=== PATIENT | male | born 1985 | race Caucasian/White ===

== ENCOUNTER 2019-07-18 10:06 | Emergency (ER) | payer BC ==
[~2019-07-18] VITALS: Ht 195.6 cm; Wt 124.7 kg
--- NOTE | 2019-07-18 10:15 | NUR ---
L THUMB LACERATION VS BROKEN VASE. PATIENT A/OX4, KEPT COMFORTABLE. NEEDS ATTENDED.
[2019-07-18] MEDS ORDERED: GELATIN SPONGE,ABSORBABLE 1 SPONGE SPONGE TP ONE (10:28)
[2019-07-18] MEDS ORDERED: TDAP [DIPH/PERTUSSIS/TET] 0.5 ML VIAL IM ONE ×2 (10:30→10:32)
[2019-07-18] MEDS ORDERED: CELLULOSE,OXIDIZED 1 PKT EACH MC ONE (10:30)
--- NOTE | 2019-07-18 10:58 | NUR ---
Patient discharged to home in stable condition. Written and verbal after care instructions given. Patient verbalizes understanding of instruction.
[2019-07-18 10:59] VITALS: BP 156/86
== END 2019-07-18 11:03 | disposition home or self-care (01) ==
LOC: ER 10:06
DX: S61.012A Laceration without foreign body of left thumb without damage to nail, initial encounter (principal); Z88.2 Allergy status to sulfonamides; W26.8XXA Contact with other sharp object(s), not elsewhere classified, initial encounter; Y93.89 Activity, other specified; Y92.89 Other specified places as the place of occurrence of the external cause; Y99.8 Other external cause status
CPT/HCPCS: 90715